=== PATIENT | male | born 1935 | race Caucasian/White ===

== ENCOUNTER 2017-08-06 11:53 | Emergency (ER) | payer OTHER, MEDICAID ==
[~2017-08-06] VITALS: Ht 160 cm; Wt 67.1 kg
[2017-08-06 12:00] VITALS: Ht 160 cm; Wt 67.1 kg
[2017-08-06 15:08] VITALS: BP 135/71
== END 2017-08-06 15:08 | disposition home or self-care (01) ==
LOC: ED 11:53
DX: J11.1 Influenza due to unidentified influenza virus with other respiratory manifestations (principal)
CPT/HCPCS: J1885; J7030; Q0092